=== PATIENT | female | born 1970 | race Caucasian/White ===

== ENCOUNTER 2020-03-09 19:57 | Emergency (ER) | payer OTHER ==
[~2020-03-09] VITALS: Ht 160 cm; Wt 71.0 kg
[2020-03-09] MEDS ORDERED: METOCLOPRAMIDE HCL 10MG/2ML VIAL IV ONE (21:00)
[2020-03-09] MEDS ORDERED: DIPHENHYDRAMINE 50MG/ML VIAL IV ONE (21:00)
[2020-03-09] MEDS ORDERED: SODIUM CHLORIDE 0.9% 500 ML IV ONE (21:00)
[2020-03-09 21:49] LABS: CHLORIDE 105 mEq/L (98-107)
[2020-03-09 21:50] LABS: HEMATOCRIT 45.1 % (36.0-48.0); HEMOGLOBIN 15.5 g/dL (12.0-16.0); MEAN CORPUSCULAR HEMOGLOBIN 31.7 pg (28.0-32.0); MEAN CORPUSCULAR VOLUME 92.1 fL (81.0-99.0); PLATELET 230 x1000/uL (130-400); RED BLOOD CELL COUNT 4.89 mill/uL (4.2-5.4); RED CELL DISTRIBUTION WIDTH 12.9 % (11.6-14.6)
[2020-03-09 22:43] VITALS: BP 124/91
== END 2020-03-09 22:46 | disposition home or self-care (01) ==
LOC: ER 19:57
DX: G43.909 Migraine, unspecified, not intractable, without status migrainosus (principal); Z98.890 Other specified postprocedural states; Z88.6 Allergy status to analgesic agent
CPT/HCPCS: 36415; 80048; 85027; 93005; 96361; 96374; 96375; 99284; J1200; J2765; J7040

== ENCOUNTER 2022-04-22 01:01 | Emergency (ER) | payer OTHER ==
[~2022-04-22] VITALS: Ht 160 cm; Wt 77.0 kg
[~2022-04-22 01:01] MED LIST: TOPI25TA48 PO
[2022-04-22] MEDS ORDERED: METOCLOPRAMIDE HCL 10MG TABLET PO ONE (05:15)
[2022-04-22] MEDS ORDERED: ASPIRIN 325MG EC TABLET PO ONE (05:15)
[2022-04-22 05:18] LABS: BASOPHILS % 1.1 % (0.0-2.0); EOSINOPHILS % 2.5 % (0.0-5.0); HEMATOCRIT. 42.9 % (36.0-48.0); HEMOGLOBIN. 14.5 g/dL (12.0-16.0); LYMPHOCYTES % 44.9 % (20.0-50.0); MEAN CORPUSCULAR HEMOGLOBIN 30.7 pg (28.0-32.0); MEAN CORPUSCULAR VOLUME 90.7 fL (81.0-99.0); MONOCYTES % 8.2 % (2.0-8.0); NEUTROPHILS % 43.3 % (40.0-76.0); PLATELET 231 x1000/uL (130-400); RED BLOOD CELL COUNT 4.73 mill/uL (4.2-5.4); RED CELL DISTRIBUTION WIDTH 13.9 % (11.6-14.6)
[2022-04-22 05:28] LABS: CHLORIDE 110 mEq/L (98-107)
[2022-04-22] MEDS ORDERED: ASPIRIN 325MG EC TABLET PO SCH (07:15)
[2022-04-22] MEDS ORDERED: METOCLOPRAMIDE HCL 10MG TABLET PO SCH (07:15)
[2022-04-22] MEDS ORDERED: ASPI-1497 MT (08:36)
[2022-04-22] MEDS ORDERED: METO-293 MT (08:36)
[2022-04-22 10:06] VITALS: BP 117/77
== END 2022-04-22 10:15 | disposition home or self-care (01) ==
LOC: ER 01:01
DX: R07.89 Other chest pain (principal); R51.9 Headache, unspecified; I10 Essential (primary) hypertension; Z13.9 Encounter for screening, unspecified; Z88.6 Allergy status to analgesic agent; Z88.5 Allergy status to narcotic agent; Z98.890 Other specified postprocedural states; Z86.59 Personal history of other mental and behavioral disorders
CPT/HCPCS: 36415; 71045; 80053; 83880; 84484; 85025; 93005; 99285; J8597